=== PATIENT | female | born 1985 | race Caucasian/White ===

== ENCOUNTER → 2018-04-25 | Outpatient (CLI) | payer BC ==
[2018-04-25 17:21] LABS: CONTROL LINE HCG INT CTR LINE PRESENT; HCG, SERUM QUALITATIVE NEGATIVE (NEGATIVE)
[2018-04-25 17:37] LABS: FREE T4 0.92 NG/DL (0.76-1.46)
== END ==
LOC: M SMT 13:35
DX: N92.0 Excessive and frequent menstruation with regular cycle (principal)
CPT/HCPCS: 84443

== ENCOUNTER → 2018-04-30 | Outpatient (CLI) | payer BC ==
[2018-04-30 07:42] LABS: GLUCOSE, FASTING 82 MG/DL (70-100)
[2018-04-30 08:27] LABS: 1 HR GLUCOSE 67 MG/DL (LESS THAN 199)
[2018-04-30 09:35] LABS: 2 HR GLUCOSE 76 MG/DL (LESS THAN 140)
[2018-05-07 00:14] LABS: INSULIN FREE 7.3 uU/mL (.); INSULIN TOTAL2 7.4 uU/mL (.)
== END ==
LOC: M LAB 06:33
DX: R63.5 Abnormal weight gain (principal)
CPT/HCPCS: 82951

== ENCOUNTER → 2018-05-01 | Outpatient (CLI) | payer BC | LOC: M RAD 17:19 | DX: R10.30 Lower abdominal pain, unspecified (principal) | CPT/HCPCS: 76856 ==

== ENCOUNTER → 2018-05-02 | Outpatient (CLI) | payer BC | LOC: M RAD 17:02 | DX: R10.30 Lower abdominal pain, unspecified (principal) | CPT/HCPCS: 74018 ==

== ENCOUNTER 2018-05-30 07:11 | Day surgery (SDC) | payer BC ==
[~2018-05-30 07:11] MED LIST: LR 1,000 ML IV
[2018-05-30 07:35] LABS: HEMATOCRIT 37.2 % (36.0-47.0); HEMOGLOBIN 12.3 g/dl (12.0-15.5); MEAN CORPUSCULAR HEMOGLOBIN 27.3 pg (27.0-33.0); MEAN CORPUSCULAR HGB CONC 33.1 g/dl (32.0-36.5); MEAN CORPUSCULAR VOLUME 82.5 fl (80.0-96.0); PLATELET COUNT, AUTOMATED 225 10^3/uL (150-450); RED BLOOD COUNT 4.51 10^6/uL (4.00-5.40); WHITE BLOOD COUNT 5.5 10^3/uL (4.0-10.0)
[2018-05-30] MEDS ORDERED: fentaNYL 250 MCG/5 ML INJECTION (J3010) As Ordered (07:42)
[2018-05-30] MEDS ORDERED: LIDOCAINE 2% INJ 100 MG/5 ML SDV (FOR ANES.) As Ordered (07:42)
[2018-05-30] MEDS ORDERED: PROPOFOL 200 MG/20 ML VIAL As Ordered (07:42)
[2018-05-30] MEDS ORDERED: dexameTHASONE 4 MG/ML 1ML VIAL (J1100) As Ordered (07:42)
[2018-05-30] MEDS ORDERED: ROCURONIUM BROMIDE 50 MG/5 ML VIAL As Ordered (07:42)
[2018-05-30] MEDS ORDERED: ONDANSETRON 4MG/2ML VIAL (J2405) As Ordered (07:42)
[2018-05-30] MEDS ORDERED: MIDAZOLAM INJ 2 MG/2 ML VIAL (J2250) As Ordered (07:43)
[2018-05-30 07:53] LABS: CONTROL LINE HCG INT CTR LINE PRESENT; HCG, SERUM QUALITATIVE NEGATIVE (NEGATIVE)
[2018-05-30] MEDS ORDERED: NEOSTIGMINE 10 MG/10 ML VIAL (J2710) As Ordered (10:03)
[2018-05-30] MEDS ORDERED: GLYCOPYRROLATE INJ 0.2 MG/ML 2 ML VIAL As Ordered (10:03)
[2018-05-30] MEDS ORDERED: KETOROLAC 60 MG/2 ML VIAL (J1885) As Ordered (10:04)
[2018-05-30] MEDS: BUPIVACAINE HCL 0.25% 30 ML VIAL As Ordered (10:10)
[2018-05-30] MEDS ORDERED: diazePAM 5 MG TAB As Ordered (10:36)
[2018-05-30] MEDS: diazePAM 5 MG TAB PO (10:40)
[2018-05-30] MEDS ORDERED: fentaNYL 100 MCG/2 ML INJECTION (J3010) IV (10:45)
[2018-05-30] MEDS ORDERED: LR 1,000 ML IV ×2 (10:45)
[2018-05-30] MEDS: PERCOCET 5MG/325MG TAB PO (11:09)
[2018-05-30] MEDS: ONDANSETRON 4MG/2ML VIAL (J2405) IV (11:27)
== END 2018-05-30 11:47 | disposition home or self-care (01) ==
LOC: M SDC 07:11
DX: T83.32XA Displacement of intrauterine contraceptive device, initial encounter (principal); Z30.014 Encounter for initial prescription of intrauterine contraceptive device; F41.9 Anxiety disorder, unspecified; Z88.0 Allergy status to penicillin; Z79.899 Other long term (current) drug therapy
CPT/HCPCS: 49329